=== PATIENT | female | born 1995 | race Caucasian/White ===

== ENCOUNTER → 2021-05-17 | Outpatient (CLI) | payer OTHER ==
[~2021-05-17] VITALS: Ht 170.2 cm; Wt 88.6 kg
[~2021-05-17] MED LIST: Colace100 MG PO; IBUP800 PO; ONDA4ODT; PRENATAL TABLE1 EAC2 PO; Percocet 5-3251 EACH PO; UNASYN
[2021-05-17 19:15] LABS: SARS-Cov-2 (COVID-19) PCR, MMC NEGATIVE (NEGATIVE)
== END | disposition home or self-care (01) ==
LOC: LAB 16:59 → LAB SHORT 16:59
PROVIDERS: Family Medicine
DX: Z34.83 Encounter for supervision of other normal pregnancy, third trimester (principal); Z3A.38 38 weeks gestation of pregnancy; Z20.822 Contact with and (suspected) exposure to COVID-19
CPT/HCPCS: U0004

== ENCOUNTER 2021-05-25 05:24 | Inpatient (IN) | payer OTHER ==
[~2021-05-25] VITALS: Ht 170.2 cm; Wt 88.6 kg
[~2021-05-25 05:24] MED LIST changes: -Colace100 MG PO; -IBUP800 PO; -Percocet 5-3251 EACH PO
[2021-05-25] MEDS ORDERED: Colace100 MG PO (05:47)
[2021-05-25 06:12] LABS: BASOPHILS ABSOLUTE AUTO 0.04 K/mm3 (0.00-0.23); BASOPHILS PERCENT AUTO 0 % (0-2); EOSINOPHILS ABSOLUTE AUTO 0.17 K/mm3 (0.00-0.68); EOSINOPHILS PERCENT AUTO 1 % (0-6); Hematocrit 36.9 % (33.0-51.0); Hemoglobin 12.4 g/dL (11.5-16.0); IMMATURE GRAN ABSOLUTE AUTO 0.07 K/mm3 (0.00-0.10); IMMATURE GRAN PERCENT AUTO 1 % (0-1); LYMPHOCYTES ABSOLUTE AUTO 2.73 K/mm3 (0.84-5.20); LYMPHOCYTES PERCENT AUTO 19 % (21-46); MONOCYTES ABSOLUTE AUTO 1.25 K/mm3 (0.16-1.47); MONOCYTES PERCENT AUTO 9 % (4-13); Mean Corpuscular HGB 30.7 pg (26.0-34.0); Mean Corpuscular HGB Conc 33.6 g/dL (31.5-36.5); Mean Corpuscular Volume 91 fL (80-100); NEUTROPHILS ABSOLUTE AUTO 10.43 K/mm3 (1.96-9.15); NEUTROPHILS PERCENT AUTO 71 % (41-73); Platelet Count 298 K/mm3 (150-400); RDW Coefficient Variation 12.3 % (11.7-14.2); RDW Standard Deviation 41.3 fL (35.1-46.3); Red Blood Cell Count 4.04 M/mm3 (3.80-5.20); White Blood Cell Count 14.69 K/mm3 (4.00-11.30)
--- NOTE | 2021-05-25 08:22 | NUR ---
05/25/21 0822 Yee [employer] REPEAT SECTION, VIABLE BABY GIRL AT 0811. WEIGHT 3810 GRAMS, LENGTH 20 INCHES, HEAD 13.5 INCHES, CHEST 14 INCHES. APGARS 8/9/
--- NOTE | 2021-05-25 09:50 | NUR ---
PATIENT PASSED 3 FLAT BLOOD CLOTS FUNDUS FIRM, THEN BLEEDING FROM INCISION SITE, RE-ENFORCED DRESSING NO APPARENT BLEEDING AT THIS TIME
--- NOTE | 2021-05-25 10:37 | NUR ---
DR CHAVEZ HERE TO SEE PATIENT, UPDATED OF DRAINAGE FROM INCISION SITE ASSED PATIENT WILL LEAVE DRESSING ON TILL TOMORROW
[2021-05-26 05:57] LABS: BASOPHILS ABSOLUTE AUTO 0.03 K/mm3 (0.00-0.23); BASOPHILS PERCENT AUTO 0 % (0-2); EOSINOPHILS ABSOLUTE AUTO 0.16 K/mm3 (0.00-0.68); EOSINOPHILS PERCENT AUTO 1 % (0-6); Hematocrit 32.7 % (33.0-51.0); Hemoglobin 10.6 g/dL (11.5-16.0); IMMATURE GRAN ABSOLUTE AUTO 0.07 K/mm3 (0.00-0.10); IMMATURE GRAN PERCENT AUTO 1 % (0-1); LYMPHOCYTES ABSOLUTE AUTO 2.11 K/mm3 (0.84-5.20); LYMPHOCYTES PERCENT AUTO 18 % (21-46); MONOCYTES ABSOLUTE AUTO 0.99 K/mm3 (0.16-1.47); MONOCYTES PERCENT AUTO 9 % (4-13); Mean Corpuscular HGB 31.2 pg (26.0-34.0); Mean Corpuscular HGB Conc 32.4 g/dL (31.5-36.5); Mean Platelet Volume 11.4 fL (9.1-12.4); NEUTROPHILS ABSOLUTE AUTO 8.13 K/mm3 (1.96-9.15); NEUTROPHILS PERCENT AUTO 71 % (41-73); Platelet Count 233 K/mm3 (150-400); RDW Coefficient Variation 12.5 % (11.7-14.2); RDW Standard Deviation 43.1 fL (35.1-46.3); White Blood Cell Count 11.49 K/mm3 (4.00-11.30)
[2021-05-26 05:58] LABS: Mean Corpuscular Volume 96 fL (80-100)
[2021-05-26] MEDS ORDERED: Percocet 5-3251 EACH PO (07:46)
[2021-05-26] MEDS ORDERED: IBUP800 PO (07:47)
--- NOTE | 2021-05-26 12:15 | NUR ---
Printed d/c instructions and teaching reviewed w/pt. Questions answered to her satisfaction. IV d/c'd. Pt denies other needs or concerns r/t discharge. Pt d/c'd home in wheelchair to care of .
== END 2021-05-26 12:16 | disposition home or self-care (01) | DRG 787 ==
LOC: BC 05:24
PROVIDERS: ADMIT Obstetrics & Gynecology
PROC: 10D00Z1 Extraction of Products of Conception, Low, Open Approach (ICD-10-PCS; principal; 2021-05-25 07:30)
DX: O34.211 Maternal care for low transverse scar from previous cesarean delivery (principal); O98.32 Other infections with a predominantly sexual mode of transmission complicating childbirth; Z3A.39 39 weeks gestation of pregnancy; A60.00 Herpesviral infection of urogenital system, unspecified; Z37.0 Single live birth; O99.62 Diseases of the digestive system complicating childbirth; K21.9 Gastro-esophageal reflux disease without esophagitis; O99.344 Other mental disorders complicating childbirth; F41.9 Anxiety disorder, unspecified; F32.9 Major depressive disorder, single episode, unspecified; O99.334 Smoking (tobacco) complicating childbirth; F17.210 Nicotine dependence, cigarettes, uncomplicated; Z88.5 Allergy status to narcotic agent; Z88.8 Allergy status to other drugs, medicaments and biological substances; Z79.899 Other long term (current) drug therapy
CPT/HCPCS: 36415; 85025; 86850; 86900; 86901; A9270; J0694; J1885; J2370; J2405; J2590; J2765; J3010; J7120

== ENCOUNTER → 2022-09-03 | Outpatient (CLI) | payer OTHER ==
[~2022-09-03] MED LIST changes: +Colace100 MG PO; +IBUP800 PO; +Percocet 5-3251 EACH PO
== END | disposition home or self-care (01) ==
LOC: LAB 17:29 → LAB SHORT 17:29
PROVIDERS: Obstetrics & Gynecology
DX: Z12.4 Encounter for screening for malignant neoplasm of cervix (principal)
CPT/HCPCS: G0123